=== PATIENT | male | born 1950 | race Caucasian/White ===

== ENCOUNTER → 2017-11-12 | Outpatient (CLI) | payer OTHER ==
[~2017-11-12] MED LIST: ASPIRIN E.C. 8181 MG PO; CARDURA; CARDURA XL4 MG PO; LIPITOR 10MG10 MG PO; NEXIUM 40MG40 MG PO; NITROSTAT0.4 MG/TAB SL; SYNTHROID; SYNTHROID0.05 MG/TA PO; TENORMIN 2525 MG/TAB; TENORMIN 5050 MG/TAB PO
== END ==
LOC: COL.RAD 10-27 08:15
DX: M54.6 Pain in thoracic spine (principal)

== ENCOUNTER → 2018-12-29 | Outpatient (CLI) | payer OTHER | LOC: ZCOL.LAB 16:32 | DX: J32.4 Chronic pansinusitis (principal) ==

== ENCOUNTER 2019-03-21 10:48 | Day surgery (SDC) | payer MEDICARE, OTHER ==
[~2019-03-21] VITALS: Ht 180.3 cm; Wt 102.9 kg
[2019-03-21 11:49] VITALS: BP 133/91; PULSE 72; TEMP 98.2
[2019-03-21 12:08] LABS: HEMATOCRIT 37.4 % (42.0-52.0); HEMOGLOBIN 12.6 g/dl (13.5-18.0); MEAN CELL VOLUME 104 fl (80.0-100.0); MEAN CORPUSCULAR HEMOGLOBIN 35 pg (27.0-31.0); MEAN CORPUSCULAR HGB CONC 34 g/dl (33.0-37.0); PLATELET COUNT 127 K/mm3 (130-400); REDCELL DISTRIBUTION WIDTH-CV 15.4 % (11.5-14.5)
[2019-03-21 12:16] LABS: CALCIUM 8.9 mg/dL (8.4-10.2); CREATININE, serum 0.8 (0.66-1.25); INR 1.4 (0.8-3.0); POTASSIUM 4.6 mmol/L (3.4-5.0); PROTHROMBIN TIME 16.2 SECONDS (9.7-12.8)
[2019-03-21] MEDS ORDERED: EPA FISH OIL1 SGL PO (12:18)
[2019-03-21] MEDS ORDERED: TYLENOL 325MG325 MG PO (12:18)
[2019-03-21] MEDS ORDERED: ZESTRIL 5MG5 MG PO (12:19)
[2019-03-21] MEDS ORDERED: MULTI-VITAMIN W1 TA1 PO (12:20)
[2019-03-21] MEDS ORDERED: TOPROL XL 25MG25 MG PO (12:20)
[2019-03-21] MEDS ORDERED: PROBIOTIC FORMU1 CAP PO (12:20)
[2019-03-21] MEDS ORDERED: ALDACTONE 25MG25 M1 PO (12:22)
[2019-03-21] MEDS ORDERED: VITAMIN B1 50 MG PO (12:25)
[2019-03-21 14:18] VITALS: BP 140/105; PULSE 73
--- NOTE | 2019-03-21 14:20 | NUR ---
ALL MEDICATIONS GIVEN VORB FROM . [facility]IA FOR SEDATION. SEE MERGE FOR ALL RASS ASSESSMENTS DURING AND POST PROCEDURE.
[2019-03-21] MEDS ORDERED: AMBIEN 10MG10 MG PO (16:28)
[2019-03-21 16:35] VITALS: BP 142/80; PULSE 63; TEMP 97.3
--- NOTE | 2019-03-21 16:50 | NUR ---
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 Pt report received from David CONKLIN. Pt alert and oriented. Pt has dressing on left upper chest with some shadowing noted on dressing. Pt incision site soft to palpation at this time. Ice pack applied to site. Pt education on arm movement restrictions and pt and fiance state understanding. Pt started on post op vitals and stable. Pt denies pain at this time. Pt medications reviewed and Ambien was added as was missing from home list. Dr. Mejia gave order to continue home dose. Pt having Xray completed now. Pt has call light in reach and precautions in place.
[2019-03-21] MEDS ORDERED: K-DUR20 MEQ PO (17:07)
[2019-03-21 17:08] VITALS: BP 135/90; PULSE 69; TEMP 97.3
[2019-03-21 17:48] VITALS: BP 137/87; PULSE 65; TEMP 97.3
[2019-03-21 18:31] VITALS: BP 137/88; PULSE 60; TEMP 97.3
--- NOTE | 2019-03-21 18:40 | NUR ---
Pt stable this shift. Pt pain not managed with PRN Tylenol so new order from Dr. Mejia received for NORCO. Pt given one tab and will reassess pain in 45min. Pt site has slight shadowing noted but no increase from arrival to unit. Pt assisted up to bathroom SBA without issue. Pt has call light in reach and fiance at bedside.
--- NOTE | 2019-03-21 19:06 | NUR ---
Pt report given to Juan CONKLIN.
--- NOTE | 2019-03-21 19:40 | NUR ---
Patient assessment completed and charted at this time, please see documentation for details. Patient resting in bed, at bedside. Pain medication given per protocol, new bag of ice applied to site. Will continue to monitor.
[2019-03-22 00:19] VITALS: BP 116/75; PULSE 66; TEMP 97.3
[2019-03-22 03:57] VITALS: BP 117/77; PULSE 62; TEMP 97.7
[2019-03-22 07:45] LABS: BASO % 0.7 % (0.0-2.0); GRAN # 2.9 (1.4-6.5); GRAN % 65.3 % (42.2-75.2); HEMOGLOBIN 11.3 g/dl (13.5-18.0); LYMPH % 21.3 % (20.0-51.0); MEAN CELL VOLUME 104 fl (80.0-100.0); MEAN CORPUSCULAR HEMOGLOBIN 34 pg (27.0-31.0); MEAN CORPUSCULAR HGB CONC 33 g/dl (33.0-37.0); MEAN PLATELET VOLUME 10.4 fl (7.4-10.4); MONO # 0.6 (0.1-0.6); MONO % 12.5 % (1.7-9.3); PLATELET COUNT 123 K/mm3 (130-400); RED BLOOD COUNT 3.29 M/mm3 (4.20-5.60); REDCELL DISTRIBUTION WIDTH-CV 15.2 % (11.5-14.5)
[2019-03-22 07:50] LABS: ALBUMIN 3.3 gm/dL (3.5-5.0); BILIRUBIN,TOTAL 0.4 mg/dL (0.0-1.0); CALCIUM 8.4 mg/dL (8.4-10.2); CREATININE, serum 0.74 (0.66-1.25); POTASSIUM 4.2 mmol/L (3.4-5.0); TOTAL PROTEIN 5.6 gm/dL (6.4-8.2)
[2019-03-22 07:57] LABS: HEMATOCRIT 34.3 % (42.0-52.0)
--- NOTE | 2019-03-22 08:00 | NUR ---
Assessment complete. Pt sitting up on side of bed, reports not having eaten breakfast yet. This nurse removes tray and reviews plans for testing this morning. Pt verbalizes understanding. Pt reports pain to left chest incision site 4 out of 10 on pain scale, requests medication. Saline lock IV to left forearm without s/s of complications. Left chest incision site with dressing CDI. No further needs reported. Call light in reach.
[2019-03-22 08:19] VITALS: BP 110/51; PULSE 64; TEMP 98
[2019-03-22 11:10] VITALS: BP 123/71; PULSE 66; TEMP 98.4
--- NOTE | 2019-03-22 14:40 | NUR ---
Pt reports pain to left chest incision site increasing, states "it occasionally feels like burning." PRN pain medication administered per orders. Pt also reports slight indigestion, PRN medication administered. Call light in reach.
[2019-03-22 15:41] VITALS: BP 123/77; PULSE 66; TEMP 97.8
--- NOTE | 2019-03-22 15:45 | NUR ---
MAURA met with the patient and the patient's fiancee, Latoya Conde, to discuss discharge plan. The patient lives alone in [place]. Latoya states that she lives in [place]. He reports independence with ADLs and has a cane. The patient's PCP is Dr. Seay at [facility] and he receives his medications at [facility]. He reports no difficulties obtaining his meds. The patient does not have advanced directives in EMR, but he states that he does have them completed. He states that his daughter, Radha Mcghee (ph#[phone]) is his DPOA-HC. The patient plans to return back home upon discharge. No additional needs at this time.
--- NOTE | 2019-03-22 17:45 | NUR ---
Pt resting in bed, sched medications administered per orders. Pt reports continued light pain to left chest, requesting pain medication when next available. No further needs reported. Call light in reach.
[2019-03-22 19:47] VITALS: BP 105/67; PULSE 64; TEMP 97.8
[2019-03-23] VITALS (8 sets, daily range): BP systolic 118–135; BP diastolic 65–91; PULSE 62–87; TEMP 97–98.3
--- NOTE | 2019-03-23 08:00 | NUR ---
Patient is sitting up on side of bed with at bedside. States he has some pain to his incision site, PRN administered, no other needs verbalized. Call light and personal items are within reach.
--- NOTE | 2019-03-23 08:49 | NUR ---
Pt quiet and voices very few c/o. SO talks for him. Request and given pt pain med at . NPO at [facility]. Plan to have defib testing in AM. INT to L wrist. Refuses ice pack to incision area to upper left chest. Bruising to area. Lung sounds with few crackles to Right lower lobe. Call light within reach. Will continue to monitor.
--- NOTE | 2019-03-23 11:03 | NUR ---
PT HERE FOR DFT WITH [facility] WITH [employer] AND LORI COLEMAN CRNA WITH [facility]. SEE MERGE REPORT FOR MEDICATION ADMINISTRATION TIMES AND INTRA/POST SEDATION ASSESSMENTS.
[2019-03-23] MEDS ORDERED: TOPROL XL 25MG25 MG PO (11:43)
[2019-03-23] MEDS ORDERED: CEPHALEXIN500 M1 PO (11:43)
[2019-03-23] MEDS ORDERED: LASIX 80MG TABL80 MG PO (11:44)
[2019-03-23] MEDS ORDERED: ZESTRIL 10MG10 MG PO (11:46)
--- NOTE | 2019-03-23 12:09 | NUR ---
Pt transported back to room 351 on telemetry after DFT with Dr. Mejia. Pt alert and oriented and speaking with significant other. Bedside report to [place] RN and pt connected to vital signs monitor per protocol.
--- NOTE | 2019-03-23 15:58 | NUR ---
Patient discharged home with at 1415. Stated he needed to go right away or he would sign himself out. Papers were taken to patient and he signed discharge paperwork, declined to discuss instructions because he was in a hurry. Personal belongings taken with patient. Accompanied out by via neeraj staff. Left via private vehicle.
== END 2019-03-23 14:15 | disposition home or self-care (01) ==
LOC: COL.CAR 10:48 → MEDICAL 16:55 → COL.CAR 03-23 14:15
PROVIDERS: Internal Medicine Cardiovascular Disease
DX: I25.10 Atherosclerotic heart disease of native coronary artery without angina pectoris (principal); R60.0 Localized edema; I42.0 Dilated cardiomyopathy; I50.9 Heart failure, unspecified; I10 Essential (primary) hypertension; K21.9 Gastro-esophageal reflux disease without esophagitis; G47.33 Obstructive sleep apnea (adult) (pediatric); Z87.891 Personal history of nicotine dependence; E03.9 Hypothyroidism, unspecified; K51.90 Ulcerative colitis, unspecified, without complications; Z90.49 Acquired absence of other specified parts of digestive tract; Z79.82 Long term (current) use of aspirin; Z82.5 Family history of asthma and other chronic lower respiratory diseases; Z82.49 Family history of ischemic heart disease and other diseases of the circulatory system
CPT/HCPCS: OP; C1769; C1777; C1882; C1887; C1894; C1900; J0690; J1940; J2405; J2704; J3010; J7030

== ENCOUNTER 2019-07-25 09:13 | Inpatient (IN) | payer MEDICARE, OTHER ==
[~2019-07-25] VITALS: Ht 180.3 cm; Wt 102.0 kg
[2019-07-25] VITALS (9 sets, daily range): BP systolic 70–98; BP diastolic 30–65; PULSE 66–81; TEMP 97.4–98.6
[~2019-07-25 09:13] MED LIST changes: +ALDACTONE 25MG25 M1 PO; +AMBIEN 10MG10 MG PO; +CEPHALEXIN500 M1 PO; +EPA FISH OIL1 SGL PO; +K-DUR20 MEQ PO; +LASIX 80MG TABL80 MG PO; +MULTI-VITAMIN W1 TA1 PO; +PROBIOTIC FORMU1 CAP PO; +TOPROL XL 25MG25 MG PO; +TYLENOL 325MG325 MG PO; +VITAMIN B1 50 MG PO; +ZESTRIL 10MG10 MG PO; +ZESTRIL 5MG5 MG PO
[2019-07-25] MEDS ORDERED: LASIX 40MG TABL40 MG PO (10:41)
[2019-07-25] MEDS ORDERED: ATROVENT INHALE14 GM IH (10:45)
[2019-07-25] MEDS ORDERED: VENTOLIN0.09 MG IH (10:45)
--- NOTE | 2019-07-25 14:35 | NUR ---
Admission assessment completed, alert/oriented, vital signs stable, moderate-severe pain in legs and feet from all the edema, patient reports he ran out of his lasix and did not get it refilled for over 2 weeks, 3-4+ edema to BLE, we ar giving IV Bumex, [facility] consulted, patient has a pacemaker and we will interogate it, heart RRR, lungS CTA/ diminished, patient uses ETOH regularly / ETOH detox protocol ordered
[2019-07-25 14:53] LABS: INR 1.1 (0.8-3.0); PROTHROMBIN TIME 13.1 SECONDS (9.7-12.8)
[2019-07-25 15:01] LABS: COLLECTION METHOD CLEAN CATCH
[2019-07-25 15:07] LABS: PARTIAL THROMBOPLASTIN TIME 34.6 SECONDS (26.0-37.0)
[2019-07-25 15:10] LABS: MUCOUS Present /lpf; PH 5 (5-8); SQUAMOUS EPITHELIAL None Seen /hpf; URINE APPEARANCE Clear; URINE BACTERIA None Seen /hpf; URINE BILIRUBIN Negative (NEGATIVE); URINE BLOOD Negative (NEGATIVE); URINE COLOR Yellow; URINE GLUCOSE Negative (NEGATIVE); URINE KETONE Negative (NEGATIVE); URINE LEUKOCYTE ESTERASE Negative (NEGATIVE); URINE NITRATE Negative (NEGATIVE); URINE PROTEIN(semi-quant) Negative (NEGATIVE); URINE RBC None Seen /hpf; URINE WBC 0-2 /hpf
[2019-07-25 15:32] LABS: TRICYCLIC ANTIDEPRESS URINE NEGATIVE
--- NOTE | 2019-07-25 20:45 | NUR ---
Shift assessment complete. Patient dangling at bedside. States pain 8/10 in BLE. BP 70/51. Dr. Islas notified. IV morphine held, po norco ordered. Patient ok with plan. IV bumex held x1 dose. Ok to give IV phenergan. Patient also states he only drinks 2-3 times/week, if that. States he has never been in alcohol w/d. CIWA changed to Q4 per Dr. Islas. Denies further needs at this time. Will continue to monitor.
[2019-07-26] VITALS (7 sets, daily range): BP systolic 74–109; BP diastolic 47–78; PULSE 50–101; TEMP 94.6–98.6
--- NOTE | 2019-07-26 03:32 | NUR ---
Patient in bed, awake. States pain 7/10 in BLE. Prn pain medication given per pt request. BP stable, 109/76. Ordered protonix/synthroid given per pt request, so he is not woken up in a few hours. Denies further needs at this time. Will continue to monitor.
[2019-07-26 07:10] LABS: BASO % 0.6 % (0.0-2.0); GRAN # 4.1 (1.4-6.5); GRAN % 80.2 % (42.2-75.2); HEMATOCRIT 41.2 % (42.0-52.0); HEMOGLOBIN 14.1 g/dl (13.5-18.0); LYMPH # 0.6 (1.2-3.4); LYMPH % 12.5 % (20.0-51.0); MEAN CELL VOLUME 119 fl (80.0-100.0); MEAN CORPUSCULAR HEMOGLOBIN 41 pg (27.0-31.0); MEAN CORPUSCULAR HGB CONC 34 g/dl (33.0-37.0); MEAN PLATELET VOLUME 12.9 fl (7.4-10.4); MONO # 0.3 (0.1-0.6); MONO % 6.1 % (1.7-9.3); PLATELET COUNT 76 K/mm3 (130-400); RED BLOOD COUNT 3.46 M/mm3 (4.20-5.60); REDCELL DISTRIBUTION WIDTH-CV 19.9 % (11.5-14.5)
[2019-07-26 07:47] LABS: CALCIUM 8.4 mg/dL (8.4-10.2); CREATININE, serum 0.59 (0.66-1.25); POTASSIUM 3.9 mmol/L (3.4-5.0)
[2019-07-26 07:57] LABS: CHOLESTEROL RISK RATIO 1.9
[2019-07-26 08:09] LABS: MAGNESIUM 1.6 mg/dL (1.6-2.3); PHOSPHOROUS 3.2 mg/dL (2.5-4.5)
--- NOTE | 2019-07-26 12:06 | NUR ---
Initial visit; Patient thanked New Car Make Ready Worker for offering spiritual care.
--- NOTE | 2019-07-26 16:28 | NUR ---
Rocket Assembly Operator met with patient to discuss discharge planning. Patient lives alone in [place] and sees Dr. Mariano at [facility] for [facility]. Patient obtains medications from [facility]. Patient has uses a cane and also wears hearing aides. Patient reports he has had difficulty around home and that his legs have been very weak. Patient reports he has Advance Directives that designate his daughter, Shannon. MAURA contacted [facility] to request PT/OT orders. MAURA to continue to follow.
--- NOTE | 2019-07-26 19:45 | NUR ---
Shift assessment complete. Patient dangling at bedside. States 8/10 pain in left foot. Prn po pain medication given per pt request. BP 88/53, IV bumex held per parameters. Patient requesting ambien be reordered. Will notify Dr. Islas for new order. Will recheck BP prior to giving ambien. Patient agreeable to plan, but very impatient about receiving his ambien. Denies further needs at this time. Will continue to monitor.
--- NOTE | 2019-07-26 21:00 | NUR ---
Repeat BP 97/78. Patient states that the norco was not effective for his left foot/toe pain. BP over parameter requirements for morphine, therefore morphine IV given. Denies further needs at this time. Will continue to monitor.
[2019-07-27 01:07] VITALS: BP 101/56; PULSE 104; TEMP 97.4
[2019-07-27 04:09] VITALS: BP 98/54; PULSE 99; TEMP 97.5
--- NOTE | 2019-07-27 04:51 | NUR ---
Patient in bed, dangling at bedside. States pain 8/10 in left foot/toe. Prn norco given per request. Denies further needs at this time. Will continue to monitor.
[2019-07-27 07:20] LABS: BASO % 0.8 % (0.0-2.0); GRAN # 3.5 (1.4-6.5); GRAN % 70.8 % (42.2-75.2); LYMPH # 0.9 (1.2-3.4); LYMPH % 17.8 % (20.0-51.0); MEAN CORPUSCULAR HGB CONC 33 g/dl (33.0-37.0); MONO # 0.5 (0.1-0.6); PLATELET COUNT 98 K/mm3 (130-400); RED BLOOD COUNT 2.61 M/mm3 (4.20-5.60); REDCELL DISTRIBUTION WIDTH-CV 20.2 % (11.5-14.5)
[2019-07-27 07:33] LABS: HEMATOCRIT 32.3 % (42.0-52.0); MEAN CELL VOLUME 124 fl (80.0-100.0); MEAN CORPUSCULAR HEMOGLOBIN 41 pg (27.0-31.0)
[2019-07-27 07:34] LABS: CALCIUM 8.1 mg/dL (8.4-10.2); CREATININE, serum 0.55 (0.66-1.25); POTASSIUM 4.1 mmol/L (3.4-5.0)
[2019-07-27 07:35] VITALS: BP 132/90; PULSE 116; TEMP 97.8
[2019-07-27 07:36] LABS: HEMOGLOBIN 10.7 g/dl (13.5-18.0)
[2019-07-27] MEDS ORDERED: FOLIC ACID 11 MG/TA1 PO (07:50)
[2019-07-27] MEDS ORDERED: LASIX 40MG TABL40 MG PO (08:30)
[2019-07-27] MEDS ORDERED: TOPROL XL 25MG25 MG PO (08:30)
[2019-07-27] MEDS ORDERED: DOXYCYCLINE 10100 MG PO (08:33)
[2019-07-27] MEDS ORDERED: VENTOLIN0.09 MG IH (08:42)
--- NOTE | 2019-07-27 09:30 | NUR ---
DISCAHRGE EDUCATION WAS PROVIDED. NO QUESTIONS WHERE VOICED. DID ASSURE PT THAT SCRIPTS WHERE ELECTRONICALLY SENT TO PHARMACY AND SHOULD BE READY FOR PICKUP BY THE TIME HE GETS THERE. IV AND TELE WHERE REMOVED WITHOUT ISSUES. 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 KLAUS WHEELED PT KULWANT, BY THE TIME SERVICE PROMOTER SALESPERSON TOOK PT TO ADMISSIONS DESK THE CAB HAD JUST LEFT [place], VOLCANOLOGIST TOLD KLAUS THAT SHE WOULD MAKE SURE PT MADE IT TO THE CAB OKAY.
[2019-07-28 01:46] LABS: FOLATE (FOLIC ACID) 19.5 ng/mL (>=4.0)
[2019-07-31] MEDS ORDERED: LEVAQUIN 750MG750 M1 PO (11:24)
[2019-07-31] MEDS ORDERED: AMOXICILLIN 8751 TAB PO (11:24)
== END 2019-07-27 10:00 | disposition home or self-care (01) | DRG 292 ==
LOC: MEDICAL 09:13
PROVIDERS: Nurse Practitioner Family; Physician Assistant; ADMIT Internal Medicine
DX: I11.0 Hypertensive heart disease with heart failure (principal); K86.1 Other chronic pancreatitis; I50.23 Acute on chronic systolic (congestive) heart failure; I42.8 Other cardiomyopathies; E03.9 Hypothyroidism, unspecified; E78.5 Hyperlipidemia, unspecified; G47.33 Obstructive sleep apnea (adult) (pediatric); M19.90 Unspecified osteoarthritis, unspecified site; D53.9 Nutritional anemia, unspecified; D69.6 Thrombocytopenia, unspecified; K44.9 Diaphragmatic hernia without obstruction or gangrene; L03.032 Cellulitis of left toe; K76.0 Fatty (change of) liver, not elsewhere classified; I10 Essential (primary) hypertension; Z91.14 Patient's other noncompliance with medication regimen; Z95.810 Presence of automatic (implantable) cardiac defibrillator; Z93.0 Tracheostomy status; Z90.49 Acquired absence of other specified parts of digestive tract
CPT/HCPCS: 99222-AI; 99232-AI; 99239; J1650; J2270; J2550